=== PATIENT | female | born 1975 | race Caucasian/White ===

== ENCOUNTER → 2023-02-10 | Outpatient (CLI) | payer BC ==
--- NOTE | 2023-02-10 09:35 | US ---
EXAMINATION TYPE: US abdomen complete DATE OF EXAM: 02/10/2023 COMPARISON: NONE CLINICAL INDICATION: Female, 47 years old with history of R10.9 ABDOMINAL PAIN; Elevated liver enzyme s. Cholecystectomy TECHNIQUE: Multiple sonographic images of the abdomen are obtained. 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 fluid noted RUQ adjacent to liver Gallbladder: Surgically absent Evidence for sonographic Peterson's sign: no CBD: appears wnl Spleen: wnl Right Kidney: small in size, no evidence of hydronephrosis Left Kidney: small in size, no evidence of hydronephrosis Upper IVC: wnl Abd Aorta: wnl The liver is homogenous. The intrahepatic portion of the IVC and proximal abdominal aorta are within normal limits. There is no evidence of cholelithiasis. Common bile duct is unremarkable. The visu alized portions of the pancreas are homogenous. The spleen is unremarkable. Kidneys are symmetric a nd free of hydronephrosis. No renal lesions are seen. IMPRESSION: 1. Cirrhosis. 2. Ascites. 3. Prior cholecystectomy. 4. No evidence of biliary ductal dilation. 5. No evidence of right-sided hydronephrosis.
[2023-02-10 11:22] LABS: Basophils # (A) 0.03 X 10*3/uL (0.00-0.10); Basophils % (A) 0.7 %; Eosinophils # (A) 0.07 X 10*3/uL (0.04-0.35); Eosinophils % (A) 1.7 %; HCT 28.9 % (37.2-46.3); HGB 9.4 d/dL (12.0-15.0); Lymphocytes # (A) 1.93 X 10*3/uL (0.90-5.00); Lymphocytes % (A) 47.3 %; MCH 29.6 pg (27.0-32.0); MCHC 32.5 d/dL (32.0-37.0); MCV 90.9 FL (80.0-97.0); Monocytes # (A) 0.45 X 10*3/uL (0.20-1.00); NRBC Per 100 WBC 0 X 10*3/uL (0.00-0.01); Neutrophils # (A) 1.59 X 10*3/uL (1.80-7.70); Neutrophils % (A) 39.1 %; Platelet Count 131 X 10*3/uL (140-440); RBC 3.18 X 10*6/uL (4.10-5.20); RDW 15.3 % (11.5-14.5); WBC 4.08 X 10*3/uL (4.50-10.00)
[2023-02-10 11:38] LABS: ALT 23 U/L (8-44); AST 41 U/L (13-35); Albumin/Globulin Ratio 0.61 Ratio (1.60-3.17); Alkaline Phosphatase 95 U/L (41-126); BUN/Creat Ratio 4.27 Ratio (12.00-20.00); Blood Urea Nitrogen 6.4 mg/dL (9.0-27.0); Calcium 8.1 mg/dL (8.7-10.3); Carbon Dioxide 38.8 mmol/L (21.6-31.8); Chloride 104 mmol/L (96-109); Globulin 3.3 d/dL (1.6-3.3); Glucose 84 mg/dL (70-110); Potassium 4.1 mmol/L (3.5-5.5); Sodium 151 mmol/L (135-145); Total Bilirubin 1.2 mg/dL (0.3-1.2); Total Protein 5.3 d/dL (6.2-8.2)
== END | disposition home or self-care (01) ==
LOC: RADUSWWP 06:55
PROVIDERS: ATTEND Internal Medicine Gastroenterology
DX: R74.01 Elevation of levels of liver transaminase levels (principal); K74.60 Unspecified cirrhosis of liver; R18.8 Other ascites; Z90.49 Acquired absence of other specified parts of digestive tract
CPT/HCPCS: 76700; 80053; 85025